=== PATIENT | male | born 1985 | race Caucasian/White ===

== ENCOUNTER 2018-07-19 09:16 | Emergency (ER) | payer SELFPAY ==
[2018-07-19] MEDS ORDERED: NORMAL SALINE 1000 ML 1,000 ML IV ONE (09:55)
[2018-07-19] MEDS ORDERED: KETOROLAC TROMETHAMINE INJ/PF 30 MG/1 ML SDV IV ONE (09:55)
[2018-07-19] MEDS ORDERED: ONDANSETRON HCL INJ/PF 4 MG/2 ML SDV IV ONE (09:55)
--- NOTE | 2018-07-19 09:55 | ER Document Report ---
ED Medical Screen (RME) - General Chief Complaint: Abdominal Pain Stated Complaint: ABDOMINAL PAIN/NAUSEA/DIARRHEA Time Seen by Provider: 07/19/18 09:50 Notes: Patient is a 32-year-old male that presents to the emergency department for chief complaint of abdominal pain, nausea, vomiting and diarrhea. ROS: Other than noted above, the 12 point review of systems was reviewed with the patient and were negative, all pertinent findings are included in the HPI. PHYSICAL EXAMINATION: Vital signs reviewed. GENERAL: Well-appearing, well-nourished and in no acute distress. HEAD: Atraumatic, normocephalic. EYES: Pupils equal round extraocular movements intact, conjunctiva are normal. ENT: Nares patent NECK: Normal range of motion CV: Heart regular rate and rhythm Abdomen: Bilateral lower abdominal tenderness with palpation LUNGS: No respiratory distress Musculoskeletal: Normal range of motion NEUROLOGICAL: Normal speech PSYCH: Normal mood, normal affect. MDM: Patient seen and examined for rapid initial assessment. Vital signs reviewed. A comprehensive ED assessment and evaluation of the patient, analysis of test results and completion of the medical decision making process will be conducted by additional ED providers. *Note is created using voice recognition software and may contain spelling, syntax or grammatical errors. TRAVEL OUTSIDE OF THE [place] IN LAST 30 DAYS: No - Related Data Allergies/Adverse Reactions: No Known Allergies Allergy (Verified 07/19/18 09:27) Past Medical History - Social History Frequency of alcohol use: None Drug Abuse: Marijuana Renal/ Medical History: Denies: Hx Peritoneal Dialysis Past Surgical History: Reports: Hx Orthopedic Surgery - Left clavicle, osteosarcoma - Immunizations Immunizations up to date: Yes Hx Diphtheria, Pertussis, Tetanus Vaccination: Yes Physical Exam - Vital signs Vitals: Temp Pulse Resp BP Pulse Ox 98.7 F 94 18 122/90 H 99 07/19/18 09:39 07/19/18 09:39 07/19/18 09:39 07/19/18 09:39 07/19/18 09:39 Course - Vital Signs Vital signs: Temp Pulse Resp BP Pulse Ox 98.7 F 94 18 122/90 H 99 07/19/18 09:39 07/19/18 09:39 07/19/18 09:39 07/19/18 09:39 07/19/18 09:39
[2018-07-19 10:56] LABS: ABSOLUTE EOSINOPHILS # (AUTO) 0.4 10^3/uL (0.0-0.6); ABSOLUTE LYMPHOCYTES (AUTO) 0.9 10^3/uL (0.5-4.7); ABSOLUTE MONOCYTES (AUTO) 0.8 10^3/uL (0.1-1.4); BASOPHILS % (AUTO) 0.4 % (0-2); EOSINOPHILS % (AUTO) 4.7 % (0-6); HEMATOCRIT 42.2 % (37.9-51.0); HEMOGLOBIN 14.7 g/dL (13.5-17.0); LYMPHOCYTES % (AUTO) 10.7 % (13-45); MEAN CORPUSCULAR HEMOGLOBIN 33.2 pg (27.0-33.4); MEAN CORPUSCULAR HGB CONC 34.9 g/dL (32.0-36.0); MEAN CORPUSCULAR VOLUME 95 fl (80-97); MONOCYTES % (AUTO) 9.5 % (3-13); PLATELET COUNT 147 10^3/uL (150-450); RED BLOOD COUNT 4.44 10^6/uL (4.35-5.55); SEGMENTED NEUTROPHILS % (AUTO) 74.7 % (42-78); TOTAL CELLS COUNTED % (AUTO) 100 %; WHITE BLOOD COUNT 8.1 10^3/uL (4.0-10.5)
[2018-07-19 11:01] LABS: APPEARANCE,URINE SLIGHTLY-CLOUDY; BILIRUBIN,URINE NEGATIVE (NEGATIVE); COLOR,URINE YELLOW; GLUCOSE, URINE NEGATIVE (NEGATIVE); KETONES,URINE NEGATIVE (NEGATIVE); LEUKOCYTE ESTERASE,URINE NEGATIVE (NEGATIVE); NITRITE,URINE NEGATIVE (NEGATIVE); PROTEIN,URINE NEGATIVE (NEGATIVE); URINE SPECIFIC GRAVITY 1.024
[2018-07-19 11:18] LABS: ALANINE AMINOTRANSFERASE 18 U/L (21-72); ALBUMIN 3.8 g/dL (3.5-5.0); ALKALINE PHOSPHATASE 52 U/L (38-126); ANION GAP 9 (5-19); ASPARTATE AMINO TRANSFERASE 24 U/L (17-59); BILIRUBIN,DIRECT 0.2 mg/dL (0.0-0.4); BILIRUBIN,TOTAL 0.3 mg/dL (0.2-1.3); BLOOD UREA NITROGEN 12 mg/dL (7-20); CALCIUM 9.3 mg/dL (8.4-10.2); CARBON DIOXIDE 32 mmol/L (22-30); CHLORIDE 100 mmol/L (98-107); GLUCOSE 99 mg/dL (75-110); LIPASE 29.6 U/L (23-300); POTASSIUM 4.5 mmol/L (3.6-5.0); SODIUM 141.2 mmol/L (137-145); TOTAL PROTEIN 6.2 g/dL (6.3-8.2)
--- NOTE | 2018-07-19 13:09 | RADIOLOGY REPORT (SQ) ---
EXAM DESCRIPTION: CT ABD/PELVIS WITH IV ORAL COMPLETED DATE/TIME: 07/19/2018 12:52 pm REASON FOR STUDY: bilateral lower abdominal pain COMPARISON: PET-CT 01/29/2013 TECHNIQUE: CT scan of the abdomen and pelvis performed using helical scanning technique with dynamic intravenous contrast injection. Patient drank oral contrast. Images reviewed with lung, soft tissue , and bone windows. Reconstructed coronal and sagittal MPR images reviewed. Delayed images for evalua tion of the urinary system also acquired. All images stored on PACS. All CT scanners at this facility use dose modulation, iterative reconstruction, and/or weight based d osing when appropriate to reduce radiation dose to as low as reasonably achievable (ALARA). [facility]: Dose Right [facility]: CareDose [facility]: Dose Right [facility]: Teradose 4D [facility]: Zauber CONTRAST TYPE AND DOSE: contrast/concentration: Isovue 350.00 mg/ml; Total Contrast Delivered: 79.0 ml; Total Saline Delivered: 68.0 ml RENAL FUNCTION: None required. The patient is less than 50 years old. RADIATION DOSE: CT Rad equipment meets quality standard of care and radiation dose reduction techniq ues were employed. CTDIvol: 4.8 - 5.5 mGy. DLP: 579 mGy-cm.. LIMITATIONS: None. FINDINGS: Trace amount of fluid is present in the right hip paddle renal fossa on axial images 45-50 , and along the right pericolic gutter. Minimal wall thickening along the cecum and ascending colon and hepatic flexure. A short segment of normal appendix is identified on coronal image 30 and sagitt al image 36. These findings were discussed with Pedro Snyder in the Emergency Room. These findings co uld be related to right-sided gastroenteritis. Appendicitis could not entirely be excluded. LOWER CHEST: No significant findings. No nodules or infiltrates. LIVER: Normal size. No masses. No dilated ducts. SPLEEN: Normal size. No focal lesions. PANCREAS: No masses. No significant calcifications. No adjacent inflammation or peripancreatic fluid collections. Pancreatic duct not dilated. GALLBLADDER: No identified stones by CT criteria. No inflammatory changes to suggest cholecystitis. ADRENAL GLANDS: No significant masses or asymmetry. RIGHT KIDNEY AND URETER: No solid masses. No significant calcifications. No hydronephrosis or hyd roureter. LEFT KIDNEY AND URETER: No solid masses. No significant calcifications. No hydronephrosis or hydr oureter. AORTA AND VESSELS: No aneurysm. No dissection. Renal arteries, SMA, celiac without stenosis. RETROPERITONEUM: No retroperitoneal adenopathy, hemorrhage or masses. BOWEL AND PERITONEAL CAVITY: Patient drank oral contrast. No CT evidence of bowel obstruction. Shor t segment of normal appendix is visualized in the right lower quadrant. There is mild wall thickenin g along the ascending colon and hepatic flexure, with trace right pericolic gutter fluid and trace fl uid in the right hepatic renal fossa, nonspecific. Could be inflammation related to gastroenteritis. Appendicitis could not entirely be excluded. Findings discussed withPedro Snyder in the Emergency Ro om APPENDIX: As above PELVIS: No mass. No free fluid. Normal bladder. ABDOMINAL WALL: No masses. No hernias. BONES: No significant or acute findings. OTHER: No other significant finding. IMPRESSION: Nonspecific findings of right pericolic gutter and pattern renal fossa trace fluid, mild right-sided colon wall thickening. This could be related to gastroenteritis. Appendicitis could no t entirely be excluded TECHNICAL DOCUMENTATION: JOB ID: [id number] Quality ID # [id number]: Final reports with documentation of one or more dose reduction techniques (e.g., Au tomated exposure control, adjustment of the mA and/or kV according to patient size, use of iterative reconstruction technique) 2010 [employer]- All Rights Reserved Reading location - IP/workstation name: [id number]
--- NOTE | 2018-07-19 15:36 | ER Document Report ---
ED General - General Chief Complaint: Abdominal Pain Stated Complaint: ABDOMINAL PAIN/NAUSEA/DIARRHEA Time Seen by Provider: 07/19/18 09:50 TRAVEL OUTSIDE OF THE [place] IN LAST 30 DAYS: No - HPI Patient complains to provider of: Abdominal pain abdominal cramping nausea vomiting diarrhea Notes: Patient states above-stated symptoms ongoing for the last 3-4 days. Patient states no relief of symptoms with [id number] adjuncts. Patient states no documented fever however has been having some night sweats and chills. Patient states most his pain is diffuse with cramping in nature. Patient denies any recent antibiotics travel denies any pets. Patient looks to be no obvious distress upon my evaluation. - Related Data Allergies/Adverse Reactions: No Known Allergies Allergy (Verified 07/19/18 09:27) Past Medical History - Social History Smoking Status: Current Every Day Smoker Frequency of alcohol use: None Drug Abuse: Marijuana Family History: Reviewed & Not Pertinent Patient has suicidal ideation: No Patient has homicidal ideation: No Renal/ Medical History: Denies: Hx Peritoneal Dialysis Past Surgical History: Reports: Hx Orthopedic Surgery - Left clavicle, osteosarcoma - Immunizations Immunizations up to date: Yes Hx Diphtheria, Pertussis, Tetanus Vaccination: Yes Review of Systems - Review of Systems Constitutional: No symptoms reported EENT: No symptoms reported Cardiovascular: No symptoms reported Respiratory: No symptoms reported Gastrointestinal: Abdominal pain, Diarrhea, Nausea, Vomiting Genitourinary: No symptoms reported Male Genitourinary: No symptoms reported Musculoskeletal: No symptoms reported Skin: No symptoms reported Hematologic/Lymphatic: No symptoms reported Neurological/Psychological: No symptoms reported -: Yes All other systems reviewed and negative Physical Exam - Vital signs Vitals: Temp Pulse Resp BP Pulse Ox 98.7 F 94 18 122/90 H 99 07/19/18 09:39 07/19/18 09:39 07/19/18 09:39 07/19/18 09:39 07/19/18 09:39 Interpretation: Normal - General General appearance: Appears well, Alert - HEENT Head: Normocephalic, Atraumatic Eyes: Normal Pupils: PERRL - Respiratory Respiratory status: No respiratory distress Chest status: Nontender Breath sounds: Normal Chest palpation: Normal - Cardiovascular Rhythm: Regular Heart sounds: Normal auscultation Murmur: No - Abdominal Inspection: Normal Distension: No distension Bowel sounds: Normal Tenderness: Tender - Mild diffuse tenderness no peritoneal signs. No: McBurney' s point, Alvarez's sign, Guarding, Rebound Organomegaly: No organomegaly - Back Back: Normal, Nontender - Extremities General upper extremity: Normal inspection, Nontender, Normal color, Normal ROM , Normal temperature General lower extremity: Normal inspection, Nontender, Normal color, Normal ROM , Normal temperature, Normal weight bearing. No: Kacy's sign - Neurological Neuro grossly intact: Yes Cognition: Normal Orientation: AAOx4 Logan Coma Scale Eye Opening: Spontaneous Logan Coma Scale Verbal: Oriented Logan Coma Scale Motor: Obeys Commands Jennifer Coma Scale Total: 15 Speech: Normal Motor strength normal: LUE, RUE, LLE, RLE Sensory: Normal - Psychological Associated symptoms: Normal affect, Normal mood - Skin Skin Temperature: Warm Skin Moisture: Dry Skin Color: Normal Course - Re-evaluation Re-evalutation: 07/19/18 15:31 Laboratory studies not revealing critical pathology. Patient was able to tolerate oral contrast for a CT scan which showed some trace right pericolic fluid concern that appendicitis cannot be ruled out. Multiple abdominal evaluations by myself during the patient's visit here reveals no right lower quadrant tenderness no peritoneal signs no guarding or rebound no psoas sign no obturator sign. Do believe the patient's findings were consistent with a gastroenteritis. I have contacted the surgeon electrical contacts adjuster for his opinion Dr. Hester we are currently still waiting for Dr. Hester to evaluate the patient. 07/19/18 16:17 Patient was evaluated by our surgical team Dr. Hester. Does not think patient has an acute appendicitis at this time. Initially stated patient could be discharged home positive room spinning patient to be discharged came back in the room now for observation. Patient states that he would rather be discharged at this time warning signs for acute pain signs were given to the patient. Will discharge patient home with an hand Zofran and had Bentyl. - Vital Signs Vital signs: Temp Pulse Resp BP Pulse Ox 98.7 F 94 18 122/90 H 99 07/19/18 09:39 07/19/18 09:39 07/19/18 09:39 07/19/18 09:39 07/19/18 09:39 - Laboratory Result Diagrams: 07/19/18 10:30 07/19/18 10:30 Laboratory results interpreted by me: 07/19/18 07/19/18 07/19/18 10:30 10:30 10:30 Plt Count 147 L Lymphocytes % 10.7 L Carbon Dioxide 32 H ALT 18 L Total Protein 6.2 L Urine Urobilinogen 2.0 H Discharge - Discharge Clinical Impression: Abdominal cramping, Nausea vomiting and diarrhea Condition: Good Disposition: HOME, SELF-CARE Instructions: Abdominal Pain ([facility]), Gastroenteritis (adult) ([facility]), Observation for Appendicitis ([facility]) Additional Instructions: At this time your physical examination laboratory studies not consistent with acute appendicitis. Multiple abdominal examination still reveal a nonsurgical abdomen. I do believe you have a viral gastroenteritis is causing her nausea vomiting diarrhea and your do not cramping. I would highly recommend that you continue to monitor your temperature if you develop a fever greater than 101 and had increasing pain feel that you are not getting any better to return to the ER for further evaluation. I recommend a clear liquid diet for the next 12- 24 hours and advance as tolerated. We will treat her nausea with Zofran and Phenergan. I recommend Tylenol Motrin for generalized pain control and Bentyl for abdominal cramping. Prescriptions: Ondansetron [Zofran Odt 4 mg Tablet] 4 mg PO Q4HP PRN #30 tab.rapdis PRN Reason: Dicyclomine HCl [Bentyl 20 mg Tablet] 20 mg PO QID #40 tablet Promethazine HCl [Phenergan 25 mg Tablet] 25 mg PO ASDIR PRN #30 tablet PRN Reason: Forms: Return to Work
[2018-07-19] MEDS ORDERED: ONDANSETRON ODT 4 MG TAB (6 TAB/ER DISP) PO PRN (16:18)
[2018-07-19] MEDS ORDERED: DICYCLOMINE HCL 20 MG TABLET PO ONE (16:18)
[2018-07-19 16:24] VITALS: BP 117/76
--- NOTE | 2018-07-19 17:04 | PDOC CONSULTATION ---
Consultation Consult Date: 07/19/18 Consult reason:: abdominal pains History of Present Illness Patient complains of: abdominal pains History of Present Illness: JOYCE GOYAL is a 32 year old male who c/o abdominal pains associated with diarrhea, nausea and vomiting for past 4 days. He felt warm but no definite temperature evaluation with chills last nite. escribes pain as crampy more on the RLQ. Had a CT scan of the abdomen which showed normal portion of appendix and slightly thickened cecal wall and ascending colon. Past Surgical History Past Surgical History: Reports: Orthopedic Surgery - Left clavicle, osteosarcoma Social History Smoking Status: Current Every Day Smoker Family History Family History: Reviewed & Not Pertinent Parental Family History Reviewed: Yes Children Family History Reviewed: No Sibling(s) Family History Reviewed.: No Medication/Allergy Home Medications: Diazepam [Valium 5 mg Tablet] 10 mg PO TID 07/19/18 Dicyclomine HCl [Bentyl 20 mg Tablet] 20 mg PO QID #40 tablet 07/19/18 Ondansetron [Zofran Odt 4 mg Tablet] 4 mg PO Q4HP PRN #30 tab.rapdis 07/19/18 Promethazine HCl [Phenergan 25 mg Tablet] 25 mg PO ASDIR PRN #30 tablet Allergies/Adverse Reactions: No Known Allergies Allergy (Verified 07/19/18 09:27) Review of Systems Constitutional: PRESENT: as per HPI Eyes: PRESENT: other - no visual/hearing changes Cardiovascular: PRESENT: other - no chest pains, some cough Gastrointestinal: PRESENT: abdominal pain, diarrhea, nausea, vomiting Genitourinary: PRESENT: other - no dysuria Musculoskeletal: PRESENT: back pain Neurological: PRESENT: other - no seizures Hematologic/Lymphatic: PRESENT: other - no easy bruising Physical Exam Vital Signs: Temp Pulse Resp BP Pulse Ox 98.1 F 53 L 16 117/76 99 07/19/18 16:24 07/19/18 16:24 07/19/18 16:24 07/19/18 16:24 07/19/18 16:24 Intake & Output 07/18/18 07/19/18 07/20/18 06:59 06:59 06:59 Intake Total 1000 Balance 1000 Weight 69 kg General appearance: PRESENT: mild distress Head exam: PRESENT: atraumatic Eye exam: PRESENT: conjunctiva pink Mouth exam: PRESENT: moist Neck exam: PRESENT: full ROM Respiratory exam: PRESENT: clear to auscultation cuong Cardiovascular exam: PRESENT: RRR Pulses: PRESENT: normal radial pulses Vascular exam: PRESENT: normal capillary refill GI/Abdominal exam: PRESENT: soft, tenderness - RLQ no definite rebound Rectal exam: PRESENT: deferred Extremities exam: PRESENT: full ROM Musculoskeletal exam: PRESENT: ambulatory Neurological exam: PRESENT: alert, awake, oriented to person, oriented to place , oriented to time, oriented to situation Psychiatric exam: PRESENT: appropriate affect Skin exam: PRESENT: normal color, warm Results Laboratory Results: 07/19/18 10:30 07/19/18 10:30 07/19/18 07/19/18 07/19/18 10:30 10:30 10:30 WBC 8.1 RBC 4.44 Hgb 14.7 Hct 42.2 MCV 95 MCH 33.2 MCHC 34.9 RDW 14.0 Plt Count 147 L Seg Neutrophils % 74.7 Lymphocytes % 10.7 L Monocytes % 9.5 Eosinophils % 4.7 Basophils % 0.4 Absolute Neutrophils 6.0 Absolute Lymphocytes 0.9 Absolute Monocytes 0.8 Absolute Eosinophils 0.4 Absolute Basophils 0.0 Sodium 141.2 Potassium 4.5 Chloride 100 Carbon Dioxide 32 H Anion Gap 9 BUN 12 Creatinine 1.01 Est GFR ( Amer) > 60 Est GFR (Non-Af Amer) > 60 Glucose 99 Calcium 9.3 Total Bilirubin 0.3 AST 24 ALT 18 L Alkaline Phosphatase 52 Total Protein 6.2 L Albumin 3.8 Lipase 29.6 Urine Color YELLOW Urine Appearance SLIGHTLY-CLOUDY Urine pH 6.0 Ur Specific Fisk 1.024 Urine Protein NEGATIVE Urine Glucose (UA) NEGATIVE Urine Ketones NEGATIVE Urine Blood NEGATIVE Urine Nitrite NEGATIVE Ur Leukocyte Esterase NEGATIVE Urine WBC (Auto) 1 Urine RBC (Auto) 1 Impressions: Abdomen/Pelvis CT 07/19/18 00:00 IMPRESSION: Nonspecific findings of right pericolic gutter and pattern renal fossa trace fluid, mild right-sided colon wall thickening. This could be related to gastroenteritis. Appendicitis could not entirely be excluded Assessment & Plan - Diagnosis (1) Gastroenteritis Is this a current diagnosis for this admission?: Yes - Time Time Spent: 30 to 50 Minutes - Plan Summary Plan Summary: Long discussion with pt. Doubt Acute Appendicitis. He was hydrated in the ED. Gave him the option to be admitted for observation or go home and come back if his symptoms get worse or definitely develops fever and unable to eat or drink. He feels he can go home and rest better. D/W Dr Florian and mentioned above plans while with patient. Hold off antibiotics and avoid masking any fever or symptoms.
== END 2018-07-19 16:30 | disposition home or self-care (01) ==
LOC: ER 09:16
DX: R10.84 Generalized abdominal pain (principal); R11.2 Nausea with vomiting, unspecified; R19.7 Diarrhea, unspecified; R61 Generalized hyperhidrosis; R68.83 Chills (without fever); F17.200 Nicotine dependence, unspecified, uncomplicated
CPT/HCPCS: 99285; 36415; 83690; 85025; 80053; 81001; 74177; J3490; J1885; J2405; J7030

== ENCOUNTER 2018-12-26 18:08 | Emergency (ER) | payer SELFPAY ==
[2018-12-26] MEDS ORDERED: OXYCODONE-ACETAMINOPHEN 5-325 MG TABLET PO ONE (20:12)
[2018-12-26] MEDS ORDERED: KETOROLAC TROMETHAMINE 60 MG/2 ML SDV IM ONE (20:12)
--- NOTE | 2018-12-26 20:17 | ER Document Report ---
HPI - HPI Patient complains to provider of: Low back pain Time Seen by Provider: 12/26/18 19:55 Onset: Other - 2 weeks Onset/Duration: Persistent Quality of pain: Sharp Pain Level: 4 Context: Patient presents complaining of right lower back pain that radiates down his posterior aspect of the right leg to the level of his foot. Patient denies any traumatic injury. Patient does report a history of chronic low back pain although states he is not typically had pain that radiates into the leg. Patient denies any fever. Patient denies any retention or incontinence. Patient states that he has seen a chiropractor twice as well as a bruha to help manage his symptoms. Patient does take diazepam 10 mg for bipolar disorder but states that this is not helping his pain either. Associated Symptoms: Other - Low back pain. denies: Fever Exacerbated by: Movement Relieved by: Denies Similar symptoms previously: No - Back pain, no history of leg pain Recently seen / treated by doctor: Yes - ROS ROS below otherwise negative: Yes Systems Reviewed and Negative: Yes All other systems reviewed and negative - CONSTITUTIONAL Constitutional: DENIES: Fever, Chills - NEURO Neurology: DENIES: Headache, Weakness - GASTROINTESTINAL Gastrointestinal: DENIES: Nausea - URINARY Urinary: DENIES: Dysuria, Urgency, Frequency - MUSCULOSKELETAL Musculoskeletal: REPORTS: Extremity pain, Back Pain - DERM Skin Color: Normal Skin Problems: None Past Medical History - General Information source: Patient - Social History Smoking Status: Never Smoker Frequency of alcohol use: None Drug Abuse: None Occupation: Construction Lives with: Family Family History: Reviewed & Not Pertinent Renal/ Medical History: Denies: Hx Peritoneal Dialysis Malignancy Medical History: 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 HEAD: Atraumatic, normocephalic. EYES: sclera clear, anicteric, conjunctiva are normal. ENT: nares patent, Moist mucous membranes. NECK: Normal range of motion, supple LUNGS: respirations unlabored HEART: Regular rate and rhythm without murmurs EXTREMITIES: Normal range of motion, no pitting or edema. No cyanosis. Gait normal, pt ambulates without difficulty BACK: Right lower lumbar paraspinal tenderness, no midline tenderness, no deformities or step-offs. No CVA tenderness. NEUROLOGICAL: Cranial nerves grossly intact. Normal speech, normal gait. No saddle anesthesia. No foot drop, 2+ bilateral patellar and Achilles reflexes PSYCH: Normal mood, normal affect. SKIN: Warm, Dry, normal turgor, no rashes or lesions noted. - INFECTION CONTROL TRAVEL OUTSIDE OF THE [place] IN LAST 30 DAYS: No Course - Re-evaluation Re-evalutation: 12/26/18 21:03 Report and handoff given to Esme Noland NP at bedside. - Vital Signs Vital signs: Temp Pulse Resp BP Pulse Ox 98.1 F 75 16 132/74 H 100 12/26/18 18:42 12/26/18 18:42 12/26/18 18:42 12/26/18 18:42 12/26/18 18:42 Discharge - Discharge Clinical Impression: Low back pain Qualifiers: Chronicity: chronic Back pain laterality: right Sciatica presence: with sciatica Sciatica laterality: sciatica of right side Qualified Code(s): M54.41 - Lumbago with sciatica, right side Disposition: HOME, SELF-CARE Instructions: Ice Packs ([facility]), Low Back Pain ([facility]), Steroid Medication Additional Instructions: Return immediately for any new or worsening symptoms Followup with your primary care provider, call tomorrow to make a followup appointment Follow-up with orthopedics for further evaluation, call tomorrow for an appointment Prescriptions: Cyclobenzaprine HCl [Flexeril 10 Mg Tablet] 10 mg PO TID #15 tablet Lidocaine [Lidoderm 5% (700 mg) Transdermal Patch] 1 patch TP DAILY PRN #10 adh..patch PRN Reason: Prednisone [Deltasone 20 mg Tablet] 3 tab PO DAILY 5 Days tablet Forms: Return to Work Referrals: [facility] [Provider Group] - Follow up as needed [facility] [Provider Group] - Follow up as needed
[2018-12-26] MEDS ORDERED: LIDOCAINE 5% (700 MG) TRANSDERMAL ADH..PATCH TP ONE (21:00)
--- NOTE | 2018-12-26 21:03 | RADIOLOGY REPORT (SQ) ---
EXAM DESCRIPTION: XR LUMBAR SPINE ANTEROPOSTERIOR, LATERAL, AND OBLIQUES COMPLETED DATE/TME: 12/26/2018 20:13 CLINICAL HISTORY: 33 years, Male, low back pain, RLE pain, hx sarcoma COMPARISON: None. NUMBER OF VIEWS: Five TECHNIQUE: Frontal, oblique, and lateral radiographs of the lumbar spine were obtained LIMITATIONS: None. FINDINGS: Six nonrib-bearing lumbar type vertebral bodies are evident. There is minimal rightward curvature of the lumbar spine. Lumbar vertebral body heights and alignments are maintained. Only mild multilevel intervertebral disc space narrowing is noted throughout the visualized thoracolumbar spine, most pronounced at L5-L6 and L6-S1. Superimposed facet arthropathy is noted spanning L3-S1. No acute fracture or malalignment. Oblique images reveal no evidence of spondylolysis. IMPRESSION: Mild multilevel thoracolumbar spondylosis. copyright 2010 [employer]- All Rights Reserved
[2018-12-26 21:50] VITALS: BP 128/72
== END 2018-12-26 21:49 | disposition home or self-care (01) ==
LOC: ER 18:08
DX: M54.41 Lumbago with sciatica, right side (principal); G89.29 Other chronic pain; F31.9 Bipolar disorder, unspecified; Z79.899 Other long term (current) drug therapy
CPT/HCPCS: 99283; 96372; 72110; J1885

== ENCOUNTER 2019-04-25 15:59 | Emergency (ER) | payer SELFPAY ==
[2019-04-25 16:04] VITALS: BP 143/74
[2019-04-25] MEDS ORDERED: DEXAMETHASONE SOD PHOS INJ 10 MG/1 ML VIAL IM ONE (16:15)
[2019-04-25] MEDS ORDERED: LIDOCAINE 5% (700 MG) TRANSDERMAL ADH..PATCH TP ONE (16:15)
[2019-04-25] MEDS ORDERED: KETOROLAC TROMETHAMINE 60 MG/2 ML SDV IM ONE (16:15)
--- NOTE | 2019-04-25 16:18 | ER Document Report ---
HPI - HPI Time Seen by Provider: 04/25/19 16:08 Pain Level: 3 Notes: Patient is a 33-year-old male with history of chronic back pain and sciatica who presents to the ED complaining of right lower back pain times 1 week without new injury. Patient states that he has had flareups like this in the past. Patient states that bending twisting of the trunk make his pain worse. Pain will occasionally radiate down the back right leg to his foot. He is eating and drinking without any difficulties. He is urinating normally and having normal bowel movements. He has not had any injections or procedures to his lower back. Denies any IV drug abuse. No other concerns or complaints. Denies any headache, fever, neck pain, URI, sore throat, chest pain, palpitations, syncope, cough, shortness of breath, wheeze, dyspnea, abdominal pain, nausea/vomiting/diarrhea, urinary retention, dysuria, hematuria, loss of control of bowel or bladder, numbness/tingling, saddle anesthesia, muscle paralysis/weakness, or rash. - ROS Systems Reviewed and Negative: Yes All other systems reviewed and negative Past Medical History - Social History Smoking Status: Current Every Day Smoker Family History: Reviewed & Not Pertinent Renal/ Medical History: Denies: Hx Peritoneal Dialysis Musculoskeletal Medical History: Reports Hx Arthritis - Low back pain Psychiatric Medical History: Reports: Hx Bipolar Disorder Past Surgical History: Reports: Hx Orthopedic Surgery - Left clavicle, osteosarcoma - Immunizations Immunizations up to date: Yes Hx Diphtheria, Pertussis, Tetanus Vaccination: Yes Vertical Provider Document - CONSTITUTIONAL Agree With Documented VS: Yes Notes: PHYSICAL EXAMINATION: GENERAL: Well-appearing, well-nourished and in no acute distress. LUNGS: Breath sounds clear to auscultation bilaterally and equal. No wheezes rales or rhonchi. HEART: Regular rate and rhythm without murmurs, rubs, gallops. ABDOMEN: Soft, nontender, nondistended abdomen. No guarding, no rebound. Normal bowel sounds present. No CVA tenderness bilaterally. No pulsatile mass Musculoskeletal: LE's b/l: FROM to passive/active. Strength 5+/5. No deficits noted. No bony tenderness of extremities. Back: FROM to passive/active. Strength 5+/5. No vertebral point tenderness, stepoffs, or deformities. No other bony tenderness, erythema, swelling, or ecchymosis. SLR negative b/l. + Reproducible tenderness to the right L- paraspinal mm. Mild spasming with trigger point noted. No SI jt tenderness. No foot drop Extremities: No cyanosis, clubbing, or edema b/l. Peripheral pulses 2+. Capillary refill less than 2 seconds. NEUROLOGICAL: Normal speech, normal gait. Normal sensory, motor exams. Reflexes 2+ b/l. PSYCH: Normal mood, normal affect. SKIN: Warm, Dry, normal turgor, no rashes or lesions noted. - INFECTION CONTROL TRAVEL OUTSIDE OF THE [place] IN LAST 30 DAYS: No Course - Re-evaluation Re-evalutation: 04/25/19 16:17 Patient is an afebrile, well-hydrated, 33-year-old male who presents to the ED with acute on chronic low back pain. Vitals are acceptable. PE is otherwise unremarkable for any focal neurological deficits. Patient was given Decadron, Toradol, and Lidoderm patch. He has no significant tachycardia, tachypnea, or hypoxia. He is nontoxic-appearing and is tolerating p.o. without difficulties. There are no signs of infection. No other red flag symptoms noted. No other labs or imaging warranted at this time based on H&P. Low suspicion for any meningitis, fracture, expanding/ruptured AAA, cauda equina syndrome, epidural mass lesion/abscess, herniated disc causing severe spinal stenosis, or other systemic infection at this time. Patient is aware that his condition can change from initial presentation and that he needs monitor symptoms closely for any acute changes. I will send him home with a prescription for Robaxin and naproxen. Conservative measures otherwise for symptoms. Recheck with your PCM in 3-5 days. Consider consult with orthopedic/physical therapy. Return to the ED with any worsening/concerning symptoms otherwise as reviewed discharge. Patient is in agreement. - Vital Signs Vital signs: Temp Pulse Resp BP Pulse Ox 98.9 F 74 16 143/74 H 99 04/25/19 16:03 04/25/19 16:03 04/25/19 16:03 04/25/19 16:03 04/25/19 16:03 Discharge - Discharge Clinical Impression: Acute exacerbation of chronic low back pain Condition: Stable Disposition: HOME, SELF-CARE Instructions: Low Back Pain ([facility]), Muscle Relaxers ([facility]) Additional Instructions: Rest, Ice Tylenol/ibuprofen as needed Light stretches daily Strength exercises as able Moist heat and massage may help F/u with your PCP in 3-5 days for a recheck Consider consult(s) with Orthopedics/physical therapy for ongoing/worsening symptoms Return to the ED with any worsening symptoms and/or development of fever, headache, chest pain, palpitations, syncope, shortness of breath, trouble breathing, abdominal pain, n/v/d, blood in stool/urine, loss of control of bowel/bladder, urinary retention, muscle weakness/paralysis, saddle anesthesia, numbness/tingling, or other worsening symptoms that are concerning to you. Prescriptions: Methocarbamol [Robaxin 750 mg Tablet] 750 mg PO TID PRN #10 tablet PRN Reason: Naproxen 500 mg PO BID #14 tablet Forms: Elevated Blood Pressure, Smoking Cessation Education, Return to Work Referrals: [facility]) [Provider Group] - Follow up as needed [facility] [Provider Group] - Follow up in 1 week
== END 2019-04-25 16:35 | disposition home or self-care (01) ==
LOC: ER 15:59
DX: M54.5 Low back pain (principal); G89.29 Other chronic pain; M79.604 Pain in right leg; M79.671 Pain in right foot; F17.200 Nicotine dependence, unspecified, uncomplicated
CPT/HCPCS: J1885; J1100; 96374; 96375; 99283

== ENCOUNTER → 2020-05-09 | Outpatient (CLI) | payer OTHER ==
--- NOTE | 2020-05-10 19:06 | RADIOLOGY REPORT (SQ) ---
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 TECHNIQUE: Sagittal and Axial imaging includes T1, T2, STIR and gradient echo sequences. Coronal T2/ HASTE imaging. LIMITATIONS: None. FINDINGS: VISUALIZED UPPER ABDOMEN: Limited evaluation. No acute or suspicious findings suggested. SEGMENTATION: Mild scoliosis. ALIGNMENT: Anatomic. VERTEBRAE: Intact. BONE MARROW: Normal. No marrow replacement or reactive changes. DISC SIGNAL: Variable disc disease with signal and height loss. POSTERIOR ELEMENTS: Generally intact. No pars defect evident. HARDWARE: None in the spine. CORD AND CONUS: Normal in size and signal intensity. Conus at the appropriate level. SOFT TISSUES: No aortic aneurysm seen. No bulky retroperitoneal adenopathy or mass. No paraspinal mas s or fluid. L1-L2: No significant spinal stenosis or exit foraminal stenosis. L2-L3: No significant spinal stenosis or exit foraminal stenosis. L3-L4: Broad disc bulge flattens the ventral thecal sac. Posterior ligament thickening and facet ove rgrowth with mild -moderate central narrowing. Up to moderate left foraminal stenosis. L4-L5: Broad disc bulge. Mild left paracentral annular fissure with minimal superimposed protrusion. Facet arthropathy. Mild -moderate central narrowing. Up to moderate foraminal stenosis. L5-S1: Broad disc bulge flattens the ventral thecal sac. No high-grade central stenosis. Moderate - marked right and moderate left foraminal stenosis. LOWER THORACIC: Disc disease at the lowest 2 levels without bernardo cord compression. SACRUM: Visualized upper sacrum intact. OTHER: No other significant findings. IMPRESSION: 1. Scoliosis and spondylosis as above. TECHNICAL DOCUMENTATION: JOB ID: [id number] 2010 [employer]- All Rights Reserved Reading location - IP/workstation name: [email or web address]
== END ==
LOC: RAD 15:59
PROVIDERS: ATTEND Nurse Practitioner Family
DX: M54.5 Low back pain (principal); C49.12 Malignant neoplasm of connective and soft tissue of left upper limb, including shoulder
CPT/HCPCS: 73223; 72148; A9576